=== PATIENT | female | born 2005 | race Caucasian/White ===

== ENCOUNTER → 2024-07-04 06:19 | Outpatient (REF) | payer OTHER, SELFPAY ==
[2024-07-06 08:15] LABS: Quantiferon Mitogen minus NIL 9.99 IU/mL; Quantiferon NIL 0.01 IU/mL; Quantiferon Plus TB1 minus NIL 0.05 IU/mL (<=0.34); Quantiferon Plus TB2 minus NIL 0.01 IU/mL (<=0.34); Quantiferon TB Gold Plus Negative (Negative)
== END ==
LOC: REG 06:19
PROVIDERS: ATTENDING PHYSICIAN Physician Assistant
DX: Z11.1 Encounter for screening for respiratory tuberculosis (principal)
CPT/HCPCS: 36415; 86480